=== PATIENT | male | born 1965 | race Hispanic/Latino ===

== ENCOUNTER 2021-08-06 08:04 | Inpatient (IN) | payer OTHER ==
[~2021-08-06] VITALS: Ht 188 cm; Wt 108.0 kg
[~2021-08-06 08:04] MED LIST: ZIPRASIDONE MESYLATE 20 MG/VIAL IM ONE
[2021-08-06] MEDS ORDERED: CEFTRIAXONE 1G VIAL IVP ONE (08:30)
[2021-08-06] MEDS ORDERED: 0.9%NACL 1000ML 1,000 ML IV ONE (08:30)
[2021-08-06] MEDS ORDERED: SOLU-MEDROL 125MG VIAL IVP ONE (08:30)
[2021-08-06] MEDS ORDERED: AZITHROMYCIN 250 MG TABLET PO ONE (08:30)
[2021-08-06 08:33] LABS: BASOPHILS % (AUTO) 0.4 % (0.0-5.0); HEMATOCRIT 51.5 % (42-54); LYMPHOCYTES % (AUTO) 6.1 % (21.0-51.0); MEAN CORPUSCULAR VOLUME 82.4 fL (79-99); MONOCYTES % (AUTO) 4.3 % (3.0-13.0); NEUTROPHILS % (AUTO) 87.5 % (40.0-77.0); PLATELET COUNT (AUTO) 173 K/uL (130-400); RED BLOOD CELL COUNT(AUTO) 6.25 MIL/uL (4.50-6.20); RED CELL DISTRIBUTION WIDTH 14.4 % (11.0-15.5); WHITE BLOOD COUNT (AUTO) 10.1 K/uL (4.8-10.8)
[2021-08-06] MEDS ORDERED: AZITHROMYCIN 500MG+NS 250ML 250 ML ONE (08:42)
[2021-08-06 08:49] LABS: ALANINE AMINOTRANSFERASE 38 U/L (12-78); ALBUMIN 3.1 g/dL (3.5-5.0); ASPARTATE AMINOTRANSFERASE 76 U/L (10-37); BILIRUBIN,TOTAL 0.8 mg/dL (0.2-1.0); CARBON DIOXIDE 21 mmol/L (21-32); CHLORIDE 99 mmol/L (101-111); CREATININE 3.2 mg/dL (0.5-1.5); GLOMERULAR FILTR. RATE CALC 21 mL/min (>60); GLUCOSE,RANDOM 176 mg/dL (70-105); POTASSIUM 4.2 mmol/L (3.5-5.1); SODIUM SERUM 138 mmol/L (136-145); TOTAL PROTEIN, SERUM 7.5 g/dL (6.0-8.3); UREA NITROGEN, BLOOD 68 mg/dL (7-18)
[2021-08-06 09:13] LABS: CRP QUANTITATIVE < 2.00 mg/L (0.00-9.0)
[2021-08-06 09:42] LABS: ERYTHROCYTE SEDIMENTATION RATE 20 MM/HR (0-20)
[2021-08-06] MEDS ORDERED: KETOROLAC 15MG/ML VIAL (15MG/ML) IV ONE (10:00)
[2021-08-06] MEDS ORDERED: PROCHLORPERAZINE 10MG/2ML INJ IV ONE (10:00)
[2021-08-06] MEDS ORDERED: DiphenhydrAMINE HCL 50 MG/ML VIAL IV ONE (10:00)
[2021-08-06] MEDS: OSELTAMIVIR PHOSPHATE 75 MG CAP PO SCH (10:00)
[2021-08-06 10:18] LABS: ABG BASE EXCESS -4.2 mmol/L (-2.0-3.0); ABG HCO3 19.4 mmol/L (21.0-28.0); ABG OXYGEN SATURATION 94.9 % (95.0-99.0); ABG PCO2 32 mmHg (35-48)
[2021-08-06] MEDS ORDERED: SOLU-MEDROL 125MG VIAL IVP SCH (11:00)
[2021-08-06] MEDS ORDERED: LACTULOSE 20 GM/30 ML UDCUP PO PRN (11:00)
[2021-08-06] MEDS ORDERED: ONDANSETRON 4MG INJ IVP PRN (11:00)
[2021-08-06] MEDS ORDERED: LABETALOL 20MG SYG IV PRN (11:00)
[2021-08-06] MEDS ORDERED: HYDRALAZINE 20MG/ML VIAL IV PRN (11:00)
[2021-08-06] MEDS: INSULIN HUMULIN R 100 UNIT/ML 3ML SQ SCH ×2 (11:30→16:30)
[2021-08-06] MEDS ORDERED: ETOMIDATE 20MG VIAL IVP ONE (12:21)
[2021-08-06] MEDS ORDERED: ROCURONIUM BROMIDE 10MG/1ML 5ML VL IV ONE (12:21)
[2021-08-06] MEDS ORDERED: SUCCINYLCHOLINE CHLORIDE 20 MG/ML 10 ML VIAL IVP ONE (12:21)
[2021-08-06] MEDS ORDERED: DIAZEPAM 2 MG TAB PO ONE (13:00)
[2021-08-06] MEDS ORDERED: ETOMIDATE 20MG VIAL ONE (13:33)
[2021-08-06] MEDS ORDERED: NOREPINEPHRIN 4MG/NS 250ML 250 ML IV ONE (13:36)
[2021-08-06] MEDS ORDERED: PROPOFOL 1000 MG/100 ML 100 ML IV ONE (13:36)
[2021-08-06] MEDS ORDERED: IPRATROPIUM/ALBUTEROL SULFATE 3 ML SOLUTION IH SCH (14:00)
[2021-08-06] MEDS ORDERED: ALBUTEROL INHALER 90MCG/INH IH SCH (14:00)
[2021-08-06 16:44] LABS: APPEARANCE,URINE Cloudy (CLEAR); BILIRUBIN,URINE Small (NEGATIVE); COLOR,URINE Dark Yellow (YELLOW); GLUCOSE, URINE (UA) Negative (NEGATIVE); KETONES,URINE Trace mg/dL (NEGATIVE); LEUKOCYTE ESTERASE ,URINE Negative (NEGATIVE); NITRATE,URINE Negative (NEGATIVE); OCCULT BLOOD,URINE Small (NEGATIVE); PROTEIN,URINE POS 2+ mg/dL (NEGATIVE)
[2021-08-06 16:51] LABS: WBC,URINE 0-1 /HPF (0-1)
[2021-08-06 16:52] LABS: BACTERIA,URINE Few /HPF (None Seen)
[2021-08-06 16:53] LABS: SQUAMOUS EPITHELIAL CELL,UR Rare /HPF (0-2)
[2021-08-06 16:54] LABS: AMORPHOUS SEDIMENT,UR Few /LPF (None Seen)
[2021-08-06] MEDS: SOLU-MEDROL 125MG VIAL IVP SCH (19:39)
[2021-08-06 21:00] VITALS: BP 116/77
[2021-08-06] MEDS: ATORVASTATIN 20 MG TABLET PO SCH (21:00)
[2021-08-06 22:00] VITALS: BP 174/84
[2021-08-06 23:00] VITALS: BP 129/74
[2021-08-06] MEDS ORDERED: DEXMEDETOMIDINE 400MCG/NS100ML IV ONE (23:33)
[2021-08-06] MEDS ORDERED: ZIPRASIDONE MESYLATE 20 MG/VIAL IM ONE (23:53)
[2021-08-07] VITALS (61 sets, daily range): BP systolic 78–167; BP diastolic 45–106
[2021-08-07 00:02] LABS: ABG BASE EXCESS -1.8 mmol/L (-2.0-3.0); ABG HCO3 21.7 mmol/L (21.0-28.0); ABG OXYGEN SATURATION 93.4 % (95.0-99.0); ABG PCO2 33 mmHg (35-48)
[2021-08-07] MEDS: INSULIN HUMULIN R 100 UNIT/ML 3ML SQ SCH ×5 (00:43→23:44)
[2021-08-07] MEDS: SOLU-MEDROL 125MG VIAL IVP SCH ×5 (00:44→23:48)
[2021-08-07] MEDS ORDERED: DEXMEDETOMIDINE 400MCG/NS100ML IV ONE (01:06)
[2021-08-07] MEDS ORDERED: NOREPINEPHRIN 4MG/NS 250ML 250 ML IV ONE ×2 (02:56→19:31)
[2021-08-07] MEDS ORDERED: NOREPINEPHRIN 4MG/NS 250ML 250 ML IV STA (02:58)
[2021-08-07] MEDS ORDERED: FUROSEMIDE 20MG VIAL IV STA (03:03)
[2021-08-07] MEDS: DEXMEDETOMIDINE 400MCG/NS100ML IV SCH ×3 (03:39→08:37)
[2021-08-07 03:56] LABS: BASOPHILS % (AUTO) 0.3 % (0.0-5.0); HEMATOCRIT 51.3 % (42-54); LYMPHOCYTES % (AUTO) 7.2 % (21.0-51.0); MEAN CORPUSCULAR HEMOGLOBIN 28.1 pg (27.0-33.0); MEAN CORPUSCULAR HGB CONC 32.9 g/dL (32.0-36.0); MEAN CORPUSCULAR VOLUME 85.2 fL (79-99); MONOCYTES % (AUTO) 4.9 % (3.0-13.0); NEUTROPHILS % (AUTO) 86.3 % (40.0-77.0); PLATELET COUNT (AUTO) 157 K/uL (130-400); RED BLOOD CELL COUNT(AUTO) 6.02 MIL/uL (4.50-6.20); RED CELL DISTRIBUTION WIDTH 15.1 % (11.0-15.5); WHITE BLOOD COUNT (AUTO) 11.9 K/uL (4.8-10.8)
[2021-08-07 04:01] LABS: HEMOGLOBIN A1C 5.6 % (4.0-6.0)
[2021-08-07 04:13] LABS: ALBUMIN 2.9 g/dL (3.5-5.0); BILIRUBIN,TOTAL 0.6 mg/dL (0.2-1.0); CREATININE 2.3 mg/dL (0.5-1.5); MAGNESIUM 2.5 mg/dL (1.80-2.40); TOTAL PROTEIN, SERUM 6.9 g/dL (6.0-8.3)
[2021-08-07] MEDS ORDERED: HALOPERIDOL INJ 5 MG/ML VIAL IM STA (05:54)
[2021-08-07 06:20] LABS: ABG BASE EXCESS -0.5 mmol/L (-2.0-3.0); ABG HCO3 23.9 mmol/L (21.0-28.0); ABG OXYGEN SATURATION 89.4 % (95.0-99.0); ABG PCO2 39 mmHg (35-48)
[2021-08-07] MEDS ORDERED: LORAZEPAM 2 MG/ML 1 ML VIAL ONE (06:58)
[2021-08-07] MEDS ORDERED: LORAZEPAM 2 MG/ML 1 ML VIAL IVP SCH (07:30)
[2021-08-07] MEDS ORDERED: PHARMACY COMMUNICATION MISC SCH (08:00)
[2021-08-07] MEDS ORDERED: HYDROMORPHONE PCA 10 MG/50 ML 50 ML IV PRN (08:00)
[2021-08-07] MEDS: LACTATED RINGERS 1000ML 1,000 ML IV SCH ×2 (08:17→18:18)
[2021-08-07] MEDS: AZITHROMYCIN 500MG+NS 250ML IV SCH (08:18)
[2021-08-07] MEDS: CEFTRIAXONE 1G VIAL IVP SCH (08:18)
[2021-08-07] MEDS: OSELTAMIVIR PHOSPHATE 75 MG CAP PO SCH (08:19)
[2021-08-07] MEDS ORDERED: ENOXAPARIN SODIUM 40 MG/0.4 ML SYRINGE SQ SCH (09:00)
[2021-08-07] MEDS ORDERED: PANTOPRAZOLE 40 MG/VIAL IVP SCH ×2 (09:00→12:30)
[2021-08-07] MEDS ORDERED: ASPIRIN 81MG CHEW TAB PO SCH (09:00)
[2021-08-07] MEDS ORDERED: FENTANYL 2500MCG+NS 250ML 250 ML IV ONE ×2 (10:26→21:27)
[2021-08-07] MEDS: MIDAZOLAM 100MG-0.9% NS 100ML 50 ML IV PRN (11:53)
[2021-08-07] MEDS: CISATRACURIUM BESYLATE 100 MG in 0.9%NACL 100ML 90 ML IV PRN (11:55)
[2021-08-07 12:51] LABS: ABG BASE EXCESS -7.8 mmol/L (-2.0-3.0); ABG HCO3 22.9 mmol/L (21.0-28.0); ABG OXYGEN SATURATION 97.7 % (95.0-99.0); ABG PCO2 71 mmHg (35-48)
[2021-08-07 13:02] LABS: HEMATOCRIT 54.3 % (42-54)
[2021-08-07] MEDS ORDERED: NOREPINEPHRINE BITARTRATE 8 MG in DEXTROSE 5%-WATER 250 ML IV PRN (14:30)
[2021-08-07] MEDS ORDERED: NOREPINEPHRIN 8MG/250ML NS PMX 250 ML IV PRN (15:00)
[2021-08-07] MEDS ORDERED: NOREPINEPHRIN 4MG/NS 250ML 250 ML IV PRN (18:00)
[2021-08-07 18:19] LABS: HEMATOCRIT 46.2 % (42-54)
[2021-08-07] MEDS ORDERED: PHENYLEPHRINE HCL 50 MG in 0.9% NACL 250ML 250 ML IV PRN (18:30)
[2021-08-07] MEDS ORDERED: 0.9%NACL 10ML VIAL ONE ×2 (21:01→23:47)
[2021-08-07] MEDS: PANTOPRAZOLE 40 MG/VIAL IVP SCH (21:04)
[2021-08-07] MEDS: ATORVASTATIN 20 MG TABLET PO SCH (21:04)
[2021-08-07 23:28] LABS: ABG BASE EXCESS -14.8 mmol/L (-2.0-3.0); ABG HCO3 19.1 mmol/L (21.0-28.0); ABG PCO2 84 mmHg (35-48)
[2021-08-07] MEDS ORDERED: SODIUM BICARB 50MEQ 50ML VIAL IV STA (23:52)
[2021-08-08] VITALS (65 sets, daily range): BP systolic 77–136; BP diastolic 52–85
[2021-08-08 02:17] LABS: ABG BASE EXCESS -3.4 mmol/L (-2.0-3.0); ABG OXYGEN SATURATION 99.8 % (95.0-99.0); ABG PCO2 74 mmHg (35-48)
[2021-08-08 02:28] LABS: BASOPHILS % (AUTO) 0.3 % (0.0-5.0); HEMATOCRIT 53.2 % (42-54); LYMPHOCYTES % (AUTO) 4.3 % (21.0-51.0); MEAN CORPUSCULAR HEMOGLOBIN 28.3 pg (27.0-33.0); MEAN CORPUSCULAR HGB CONC 29.5 g/dL (32.0-36.0); MONOCYTES % (AUTO) 3.8 % (3.0-13.0); NEUTROPHILS % (AUTO) 88.2 % (40.0-77.0); NUCLEATED RED BLOOD CELLS 0.3 % (0.0-0.19); PLATELET COUNT (AUTO) 87 K/uL (130-400); RED BLOOD CELL COUNT(AUTO) 5.54 MIL/uL (4.50-6.20); RED CELL DISTRIBUTION WIDTH 15.8 % (11.0-15.5); WHITE BLOOD COUNT (AUTO) 20.3 K/uL (4.8-10.8)
[2021-08-08 03:00] LABS: ALBUMIN 2.7 g/dL (3.5-5.0); BILIRUBIN,TOTAL 0.7 mg/dL (0.2-1.0); CREATININE 5.2 mg/dL (0.5-1.5); CRP QUANTITATIVE 176.5 mg/L (0.00-9.0); TOTAL PROTEIN, SERUM 6.1 g/dL (6.0-8.3)
[2021-08-08 03:04] LABS: POTASSIUM 7.2 mmol/L (3.5-5.1)
[2021-08-08] MEDS ORDERED: SODIUM BICARB 50MEQ 50ML VIAL 150 ML ONE (03:50)
[2021-08-08] MEDS: CALCIUM GLUC 1GM 2 GM in 0.9%NACL 100ML 100 ML IV SCH ×2 (03:50→22:43)
[2021-08-08] MEDS ORDERED: DEXTROSE 5%-WATER 1,000 ML IV ONE (03:51)
[2021-08-08] MEDS ORDERED: INSULIN HUMULIN R 100 UNIT/ML 3ML IV ONE ×2 (04:00)
[2021-08-08] MEDS ORDERED: SODIUM BICARB 8.4% 50ML SYRINGE IVP ONE (04:00)
[2021-08-08] MEDS ORDERED: DEXTROSE 50%-WATER 50 ML DISP.SYRIN IV ONE ×2 (04:00)
[2021-08-08] MEDS ORDERED: SODIUM BICARB 50MEQ 50ML VIAL IV ONE (04:00)
[2021-08-08 04:13] LABS: ERYTHROCYTE SEDIMENTATION RATE 1 MM/HR (0-20)
[2021-08-08 04:30] LABS: ABG BASE EXCESS -2.3 mmol/L (-2.0-3.0); ABG HCO3 27.4 mmol/L (21.0-28.0); ABG PCO2 70 mmHg (35-48)
[2021-08-08] MEDS: SODIUM BICARB 8.4% 50ML SYRING 150 MEQ in DEXTROSE 5%-WATER 1,000 ML IV SCH ×3 (04:44)
[2021-08-08] MEDS: INSULIN HUMULIN R 100 UNIT/ML 3ML SQ SCH ×4 (06:00→23:48)
[2021-08-08] MEDS ORDERED: 0.9%NACL 10ML VIAL ONE (06:00)
[2021-08-08] MEDS: SOLU-MEDROL 125MG VIAL IVP SCH ×4 (06:05→23:40)
[2021-08-08] MEDS: AZITHROMYCIN 500MG+NS 250ML IV SCH (08:13)
[2021-08-08] MEDS: CEFTRIAXONE 1G VIAL IVP SCH (08:13)
[2021-08-08] MEDS: KAYEXALATE 15GM/60ML NG SCH ×2 (08:13→11:23)
[2021-08-08] MEDS: PANTOPRAZOLE 40 MG/VIAL IVP SCH ×2 (08:14→20:28)
[2021-08-08] MEDS: OSELTAMIVIR PHOSPHATE 75 MG CAP NG SCH (08:14)
[2021-08-08] MEDS ORDERED: FENTANYL 2500MCG+NS 250ML 250 ML IV ONE ×2 (09:43→20:19)
[2021-08-08] MEDS: MIDAZOLAM 100MG-0.9% NS 100ML 50 ML IV PRN ×2 (10:07→18:44)
[2021-08-08] MEDS ORDERED: NOREPINEPHRIN 4MG/NS 250ML 250 ML IV SCH (10:30)
[2021-08-08] MEDS: CISATRACURIUM BESYLATE 100 MG in 0.9%NACL 100ML 90 ML IV PRN ×2 (10:32→21:55)
[2021-08-08] MEDS: ACETAMINOPHEN 325 MG TAB PO PRN (11:44)
[2021-08-08] MEDS ORDERED: SODIUM BICARB 8.4% 50ML SYRING 150 MEQ in DEXTROSE 5%-WATER 1,000 ML IV SCH (13:00)
[2021-08-08 14:24] LABS: CREATININE 5.3 mg/dL (0.5-1.5)
[2021-08-08 14:38] LABS: POTASSIUM 6.2 mmol/L (3.5-5.1)
[2021-08-08] MEDS ORDERED: 0.9%NACL 1000ML 2,000 ML IV ONE (15:59)
[2021-08-08] MEDS ORDERED: ALBUMIN (HUMAN) 25% 100 ML IV ONE (16:36)
[2021-08-08 17:00] LABS: HEMATOCRIT 45.9 % (42-54)
[2021-08-08] MEDS ORDERED: ALBUMIN (HUMAN) 25% 100 ML IV PRN (17:00)
[2021-08-08] MEDS ORDERED: PHARMACY COMMUNICATION MISC SCH ×2 (17:00→17:30)
[2021-08-08] MEDS: NOREPINEPHRINE BITARTRATE 16 MG in 0.9% NACL 250ML 250 ML IV PRN ×2 (17:09→21:54)
[2021-08-08 17:15] LABS: HEMOGLOBIN A1C 5.8 % (4.0-6.0)
[2021-08-08 17:18] LABS: % IRON SATURATION 10.6 % (30-44)
[2021-08-08 17:56] LABS: ALBUMIN 2.4 g/dL (3.5-5.0); CREATININE 5.1 mg/dL (0.5-1.5)
[2021-08-08] MEDS: HEPARIN 5,000 UNIT VIAL IV SCH (18:41)
[2021-08-08] MEDS: CEFEPIME HCL 1 GM VIAL IVP SCH (20:28)
[2021-08-08] MEDS: ATORVASTATIN 20 MG TABLET PO SCH (20:28)
[2021-08-09] VITALS (66 sets, daily range): BP systolic 103–156; BP diastolic 63–97
[2021-08-09 03:36] LABS: ABG BASE EXCESS 3.9 mmol/L (-2.0-3.0); ABG HCO3 29.9 mmol/L (21.0-28.0); ABG OXYGEN SATURATION 98.5 % (95.0-99.0); ABG PCO2 50 mmHg (35-48)
[2021-08-09] MEDS: ACETAMINOPHEN 325 MG TAB PO PRN ×2 (04:05→09:07)
[2021-08-09 04:13] LABS: HEMATOCRIT 46.4 % (42-54); MEAN CORPUSCULAR HEMOGLOBIN 28.1 pg (27.0-33.0); MEAN CORPUSCULAR HGB CONC 31.9 g/dL (32.0-36.0); NUCLEATED RED BLOOD CELLS 0.1 % (0.0-0.19); PLATELET COUNT (AUTO) 78 K/uL (130-400); RED BLOOD CELL COUNT(AUTO) 5.27 MIL/uL (4.50-6.20); RED CELL DISTRIBUTION WIDTH 14.7 % (11.0-15.5)
[2021-08-09 04:29] LABS: CREATININE 5.9 mg/dL (0.5-1.5); POTASSIUM 4.7 mmol/L (3.5-5.1)
[2021-08-09] MEDS ORDERED: FENTANYL 2500MCG+NS 250ML 250 ML IV ONE ×2 (04:38→16:06)
[2021-08-09] MEDS: MIDAZOLAM 100MG-0.9% NS 100ML 50 ML IV PRN ×2 (04:57→16:16)
[2021-08-09] MEDS ORDERED: PHARMACY COMMUNICATION MISC SCH (05:30)
[2021-08-09] MEDS: SOLU-MEDROL 125MG VIAL IVP SCH ×3 (06:26→17:23)
[2021-08-09] MEDS: INSULIN HUMULIN R 100 UNIT/ML 3ML SQ SCH ×3 (06:36→16:15)
[2021-08-09] MEDS: PANTOPRAZOLE 40 MG/VIAL IVP SCH ×2 (08:05→20:32)
[2021-08-09] MEDS: AZITHROMYCIN 500MG+NS 250ML IV SCH (08:06)
[2021-08-09] MEDS: OSELTAMIVIR PHOSPHATE 75 MG CAP NG SCH (08:06)
[2021-08-09] MEDS: CALCIUM GLUC 1GM 2 GM in 0.9%NACL 100ML 100 ML IV SCH (08:30)
[2021-08-09] MEDS: NOREPINEPHRINE BITARTRATE 16 MG in 0.9% NACL 250ML 250 ML IV PRN (08:32)
[2021-08-09 12:49] LABS: INR 2.25 (0.85-1.15); PROTHROMBIN TIME 22.8 SEC (9.6-11.6)
[2021-08-09 12:50] LABS: PARTIAL THROMBOPLASTIN TIME 36.1 SEC (26.3-35.5)
[2021-08-09] MEDS ORDERED: 0.9%NACL 1000ML 2,000 ML IV ONE (17:32)
[2021-08-09] MEDS: ATORVASTATIN 20 MG TABLET PO SCH (20:30)
[2021-08-09] MEDS: CEFEPIME HCL 1 GM VIAL IVP SCH (20:32)
[2021-08-09] MEDS: HEPARIN 5,000 UNIT VIAL IV SCH (20:46)
[2021-08-10] VITALS (76 sets, daily range): BP systolic 87–155; BP diastolic 59–96
[2021-08-10] MEDS: SOLU-MEDROL 125MG VIAL IVP SCH ×4 (00:11→20:35)
[2021-08-10] MEDS: INSULIN HUMULIN R 100 UNIT/ML 3ML SQ SCH ×2 (00:49→05:50)
[2021-08-10] MEDS ORDERED: FENTANYL 2500MCG+NS 250ML 250 ML IV ONE ×2 (02:21→22:38)
[2021-08-10] MEDS: MIDAZOLAM 100MG-0.9% NS 100ML 50 ML IV PRN ×3 (02:29→22:52)
[2021-08-10 05:47] LABS: BASOPHILS % (AUTO) 0.2 % (0.0-5.0); HEMATOCRIT 43.6 % (42-54); LYMPHOCYTES % (AUTO) 3.4 % (21.0-51.0); MEAN CORPUSCULAR HEMOGLOBIN 27.6 pg (27.0-33.0); MEAN CORPUSCULAR HGB CONC 32.1 g/dL (32.0-36.0); MEAN CORPUSCULAR VOLUME 85.8 fL (79-99); MONOCYTES % (AUTO) 3.6 % (3.0-13.0); NEUTROPHILS % (AUTO) 92.1 % (40.0-77.0); PLATELET COUNT (AUTO) 49 K/uL (130-400); RED BLOOD CELL COUNT(AUTO) 5.08 MIL/uL (4.50-6.20); RED CELL DISTRIBUTION WIDTH 14.5 % (11.0-15.5); WHITE BLOOD COUNT (AUTO) 20.1 K/uL (4.8-10.8)
[2021-08-10 06:03] LABS: CREATININE 6.4 mg/dL (0.5-1.5); POTASSIUM 4.3 mmol/L (3.5-5.1)
[2021-08-10 08:14] LABS: HEPATITIS Bs ANTIGEN SCREEN P Negative (Negative)
[2021-08-10] MEDS ORDERED: ENOXAPARIN SODIUM 60 MG/0.6 ML SQ ONE (09:00)
[2021-08-10] MEDS: OSELTAMIVIR PHOSPHATE 75 MG CAP NG SCH (09:09)
[2021-08-10] MEDS: PANTOPRAZOLE 40 MG/VIAL IVP SCH ×2 (09:09→20:34)
[2021-08-10] MEDS: NOREPINEPHRINE BITARTRATE 16 MG in 0.9% NACL 250ML 250 ML IV PRN (09:48)
[2021-08-10 13:36] LABS: HEMATOCRIT 41.1 % (42-54)
[2021-08-10] MEDS ORDERED: 0.9%NACL 1000ML 2,000 ML IV ONE (15:18)
[2021-08-10 15:41] LABS: HEMATOCRIT 41.6 % (42-54); MEAN CORPUSCULAR HEMOGLOBIN 27.9 pg (27.0-33.0); MEAN CORPUSCULAR HGB CONC 32.2 g/dL (32.0-36.0); MEAN CORPUSCULAR VOLUME 86.7 fL (79-99); PLATELET COUNT (AUTO) 47 K/uL (130-400); RED CELL DISTRIBUTION WIDTH 14.4 % (11.0-15.5); WHITE BLOOD COUNT (AUTO) 25.8 K/uL (4.8-10.8)
[2021-08-10 18:11] LABS: HEMATOCRIT 49.1 % (42-54)
[2021-08-10] MEDS: ATORVASTATIN 20 MG TABLET PO SCH (20:35)
[2021-08-10] MEDS: CEFEPIME HCL 1 GM VIAL IVP SCH (20:35)
[2021-08-10] MEDS ORDERED: ALBUMIN (HUMAN) 5% 500 ML IV ONE (22:30)
[2021-08-10] MEDS: FENTANYL CITRATE PF 0.05 MG/ML 2,500 MCG in 0.9% NACL 250ML 200 ML IVPB PRN (22:53)
[2021-08-11] VITALS (115 sets, daily range): BP systolic 35–201; BP diastolic 25–135
[2021-08-11 00:29] LABS: HEMATOCRIT 45.2 % (42-54)
[2021-08-11 00:46] LABS: ABG HCO3 23.8 mmol/L (21.0-28.0); ABG OXYGEN SATURATION 96.6 % (95.0-99.0); ABG PCO2 54 mmHg (35-48)
[2021-08-11] MEDS: INSULIN HUMULIN R 100 UNIT/ML 3ML SQ SCH ×3 (00:52→20:32)
[2021-08-11] MEDS: SOLU-MEDROL 125MG VIAL IVP SCH ×2 (00:52→05:16)
[2021-08-11] MEDS: ACETAMINOPHEN 325 MG TAB PO PRN ×2 (02:23→03:43)
[2021-08-11] MEDS: FENTANYL CITRATE PF 0.05 MG/ML 2,500 MCG in 0.9% NACL 250ML 200 ML IVPB PRN ×2 (03:43→20:29)
[2021-08-11] MEDS: MIDAZOLAM 100MG-0.9% NS 100ML 50 ML IV PRN ×3 (05:37→22:52)
[2021-08-11] MEDS ORDERED: PHENYLEPHRINE HCL 10 MG/ML 1ML VIAL IV ONE (05:56)
[2021-08-11 06:32] LABS: BASOPHILS % (AUTO) 0.2 % (0.0-5.0); HEMATOCRIT 41.7 % (42-54); MEAN CORPUSCULAR HEMOGLOBIN 28.3 pg (27.0-33.0); MEAN CORPUSCULAR HGB CONC 32.1 g/dL (32.0-36.0); MONOCYTES % (AUTO) 3.6 % (3.0-13.0); NEUTROPHILS % (AUTO) 93.4 % (40.0-77.0); PLATELET COUNT (AUTO) 46 K/uL (130-400); RED BLOOD CELL COUNT(AUTO) 4.74 MIL/uL (4.50-6.20); RED CELL DISTRIBUTION WIDTH 14.5 % (11.0-15.5); WHITE BLOOD COUNT (AUTO) 21.2 K/uL (4.8-10.8)
[2021-08-11 07:00] LABS: ABG BASE EXCESS -3.2 mmol/L (-2.0-3.0); ABG HCO3 24.3 mmol/L (21.0-28.0); ABG OXYGEN SATURATION 92.4 % (95.0-99.0); ABG PCO2 53 mmHg (35-48)
[2021-08-11 07:10] LABS: ALBUMIN 2.6 g/dL (3.5-5.0); CREATININE 7.5 mg/dL (0.5-1.5); CRP QUANTITATIVE 85.1 mg/L (0.00-9.0); THYROID STIMULATING HORMONE 0.07 uIU/mL (0.36-3.74); TOTAL PROTEIN, SERUM 5.7 g/dL (6.0-8.3)
[2021-08-11 07:15] LABS: POTASSIUM 6.1 mmol/L (3.5-5.1)
[2021-08-11] MEDS ORDERED: VANCOMYCIN 1G VIAL IVPB SCH (08:30)
[2021-08-11] MEDS ORDERED: VANCOMYCIN PROTOCOL PER PHARMACY IV SCH (08:30)
[2021-08-11] MEDS ORDERED: CALCIUM GLUC 1GM/10ML VIAL IVPB SCH (15:00)
[2021-08-11] MEDS ORDERED: 0.9%NACL 50ML IV SCH (15:00)
[2021-08-11] MEDS ORDERED: INSULIN HUMULIN R 100 UNIT/ML 3ML IV ONE (15:00)
[2021-08-11] MEDS ORDERED: COMPOUND IV REFRIGERATED 1 EACH IVSOLN MISC PRN (15:30)
[2021-08-11] MEDS: IBUPROFEN 600 MG TABLET PO PRN (15:36)
[2021-08-11] MEDS ORDERED: DEXTROSE 50%-WATER 50 ML DISP.SYRIN IV ONE (16:00)
[2021-08-11 16:10] LABS: APPEARANCE,URINE CLOUDY (CLEAR); BILIRUBIN,URINE SMALL (NEGATIVE); COLOR,URINE YELLOW (YELLOW); GLUCOSE, URINE (UA) NEGATIVE (NEGATIVE); KETONES,URINE 5 mg/dL (NEGATIVE); LEUKOCYTE ESTERASE ,URINE NEGATIVE (NEGATIVE); NITRATE,URINE NEGATIVE (NEGATIVE); OCCULT BLOOD,URINE LARGE (NEGATIVE); PH,URINE 5.5 (5.0-8.0); PROTEIN,URINE 100 mg/dL (NEGATIVE); UROBILINOGEN,URINE 0.2 mg/dL (0.2-1.0)
[2021-08-11 16:14] LABS: BACTERIA,URINE Few /HPF (None Seen)
[2021-08-11 16:15] LABS: SQUAMOUS EPITHELIAL CELL,UR Few /HPF (0-2)
[2021-08-11 16:16] LABS: AMORPHOUS SEDIMENT,UR Few /LPF (None Seen)
[2021-08-11 16:17] LABS: TRANSITIONAL EPI CELLS,URINE Rare /HPF (None Seen)
[2021-08-11] MEDS ORDERED: NOREPINEPHRINE BITARTRATE 32 MG in 0.9% NACL 250ML 250 ML IV SCH (17:30)
[2021-08-11] MEDS ORDERED: VANCOMYCIN 2GM/500ML NS IV ONE ×2 (18:00)
[2021-08-11] MEDS: PHENYLEPHRINE HCL 100 MG in 0.9% NACL 250ML 250 ML IV SCH (20:11)
[2021-08-11] MEDS: PANTOPRAZOLE 40 MG/VIAL IVP SCH (20:48)
[2021-08-11] MEDS: CEFEPIME HCL 1 GM VIAL IVP SCH (20:51)
[2021-08-11] MEDS: METRONIDAZOLE 500MG/100ML BAG 100 ML IVPB SCH (21:11)
[2021-08-11] MEDS: ATORVASTATIN 20 MG TABLET PO SCH (21:12)
[2021-08-11] MEDS ORDERED: ACETAMINOPHEN 650 MG/20.3 ML UDCUP PO PRN (21:30)
[2021-08-12] VITALS (35 sets, daily range): BP systolic 83–162; BP diastolic 29–101
[2021-08-12] MEDS: PHENYLEPHRINE HCL 100 MG in 0.9% NACL 250ML 250 ML IV SCH ×2 (03:15→11:56)
[2021-08-12 04:24] LABS: BASOPHILS % (AUTO) 0.2 % (0.0-5.0); HEMATOCRIT 34.6 % (42-54); LYMPHOCYTES % (AUTO) 2.8 % (21.0-51.0); MEAN CORPUSCULAR HEMOGLOBIN 27.4 pg (27.0-33.0); MEAN CORPUSCULAR HGB CONC 31.8 g/dL (32.0-36.0); MEAN CORPUSCULAR VOLUME 86.3 fL (79-99); MONOCYTES % (AUTO) 4.2 % (3.0-13.0); NEUTROPHILS % (AUTO) 91.6 % (40.0-77.0); PLATELET COUNT (AUTO) 53 K/uL (130-400); RED BLOOD CELL COUNT(AUTO) 4.01 MIL/uL (4.50-6.20); RED CELL DISTRIBUTION WIDTH 14.6 % (11.0-15.5); WHITE BLOOD COUNT (AUTO) 24.7 K/uL (4.8-10.8)
[2021-08-12 04:41] LABS: ALBUMIN 2.1 g/dL (3.5-5.0); BILIRUBIN,TOTAL 1.1 mg/dL (0.2-1.0); CREATININE 7.7 mg/dL (0.5-1.5); CRP QUANTITATIVE 141.5 mg/L (0.00-9.0); POTASSIUM 5.7 mmol/L (3.5-5.1); TOTAL PROTEIN, SERUM 4.9 g/dL (6.0-8.3)
[2021-08-12] MEDS: INSULIN HUMULIN R 100 UNIT/ML 3ML SQ SCH ×4 (05:44→12:00)
[2021-08-12] MEDS: METRONIDAZOLE 500MG/100ML BAG 100 ML IVPB SCH ×2 (06:28→14:00)
[2021-08-12] MEDS: SOLU-MEDROL 125MG VIAL IVP SCH ×4 (06:28→18:31)
[2021-08-12] MEDS: FENTANYL 2500MCG+NS 250ML IV.SOLN IV SCH ×2 (06:38→08:30)
[2021-08-12 07:33] LABS: ABG BASE EXCESS -5.9 mmol/L (-2.0-3.0); ABG HCO3 23.7 mmol/L (21.0-28.0); ABG OXYGEN SATURATION 61.8 % (95.0-99.0); ABG PCO2 65 mmHg (35-48)
[2021-08-12] MEDS: FLUCONAZOLE 400 MG/NS 200 ML 200 ML IV SCH ×2 (08:25→08:45)
[2021-08-12] MEDS: OSELTAMIVIR PHOSPHATE 75 MG CAP NG SCH ×2 (08:25→08:44)
[2021-08-12] MEDS: IBUPROFEN 600 MG TABLET PO PRN ×3 (08:29→09:46)
[2021-08-12] MEDS: PANTOPRAZOLE 40 MG/VIAL IVP SCH (08:44)
[2021-08-12] MEDS: MIDAZOLAM 100MG-0.9% NS 100ML 50 ML IV PRN (08:45)
[2021-08-12] MEDS ORDERED: FONDAPARINUX SODIUM 2.5 MG/0.5 ML SQ SCH (09:00)
[2021-08-12 09:24] LABS: ABG BASE EXCESS -5.6 mmol/L (-2.0-3.0); ABG HCO3 22.2 mmol/L (21.0-28.0); ABG OXYGEN SATURATION 99.2 % (95.0-99.0); ABG PCO2 53 mmHg (35-48)
[2021-08-12] MEDS ORDERED: IOHEXOL-350 75 ML VIAL IV ONE (10:27)
[2021-08-13] MEDS ORDERED: VANCOMYCIN KIT 1 GM/250 ML IV.KIT IV SCH (17:00)
== END 2021-08-12 21:19 | DRG 207 ==
LOC: EDH 08:04 → EDHIP 08:05 → 2BH 20:33
PROVIDERS: ADMIT Internal Medicine Infectious Disease; ATTEND Internal Medicine Infectious Disease
PROC: 5A1955Z Respiratory Ventilation, Greater than 96 Consecutive Hours (ICD-10-PCS; principal; 2021-08-06)
PROC: 5A09357 Assistance with Respiratory Ventilation, Less than 24 Consecutive Hours, Continuous Positive Airway Pressure (ICD-10-PCS; 2021-08-06)
PROC: 5A09357 Assistance with Respiratory Ventilation, Less than 24 Consecutive Hours, Continuous Positive Airway Pressure (ICD-10-PCS; 2021-08-06)
PROC: 5A0935A Assistance with Respiratory Ventilation, Less than 24 Consecutive Hours, High Flow/Velocity Cannula (ICD-10-PCS; 2021-08-06)
PROC: 0BH17EZ Insertion of Endotracheal Airway into Trachea, Via Natural or Artificial Opening (ICD-10-PCS; 2021-08-06)
PROC: 5A1D70Z Performance of Urinary Filtration, Intermittent, Less than 6 Hours Per Day (ICD-10-PCS; 2021-08-08)
PROC: 5A1D70Z Performance of Urinary Filtration, Intermittent, Less than 6 Hours Per Day (ICD-10-PCS; 2021-08-09)
PROC: 5A1D70Z Performance of Urinary Filtration, Intermittent, Less than 6 Hours Per Day (ICD-10-PCS; 2021-08-10)
PROC: 02H633Z Insertion of Infusion Device into Right Atrium, Percutaneous Approach (ICD-10-PCS; 2021-08-10)
PROC: 5A1D70Z Performance of Urinary Filtration, Intermittent, Less than 6 Hours Per Day (ICD-10-PCS; 2021-08-11)
DX: U07.1 COVID-19 (principal); A41.89 Other specified sepsis; I21.4 Non-ST elevation (NSTEMI) myocardial infarction; J10.08 Influenza due to other identified influenza virus with other specified pneumonia; J12.82 Pneumonia due to coronavirus disease 2019; J80 Acute respiratory distress syndrome; K72.00 Acute and subacute hepatic failure without coma; N18.6 End stage renal disease; I61.5 Nontraumatic intracerebral hemorrhage, intraventricular; R65.21 Severe sepsis with septic shock; N17.9 Acute kidney failure, unspecified; I12.0 Hypertensive chronic kidney disease with stage 5 chronic kidney disease or end stage renal disease; G93.1 Anoxic brain damage, not elsewhere classified; J93.9 Pneumothorax, unspecified; K92.2 Gastrointestinal hemorrhage, unspecified; M62.82 Rhabdomyolysis; Z66 Do not resuscitate; E88.09 Other disorders of plasma-protein metabolism, not elsewhere classified; F41.9 Anxiety disorder, unspecified; E87.5 Hyperkalemia; D69.6 Thrombocytopenia, unspecified; E78.5 Hyperlipidemia, unspecified; E66.01 Morbid (severe) obesity due to excess calories; E11.22 Type 2 diabetes mellitus with diabetic chronic kidney disease; D64.9 Anemia, unspecified; Z91.19 Patient's noncompliance with other medical treatment and regimen; Z99.2 Dependence on renal dialysis
CPT/HCPCS: 31500; 36415; 36600; 70450; 71045; 71250; 78610; 80048; 80053; 80061; 80190; 81001; 82040; 82435; 82550; 82565; 82728; 82803; 82947; 82948; 83036; 83540; 83550; 83605; 83735; 83874; 83880; 84100; 84132; 84145; 84295; 84443; 84484; 84520; 85014; 85018; 85025; 85027; 85378; 85610; 85651; 85730; 86140; 86701; 86704; 86706; 86850; 86900; 86901; 87040; 87071; 87088; 87205; 87340; 87390; 87635; 87804; 90935; 93005; 93925; 93970; 94002; 94003; 94660; 99291; A9512; C1751; C9113; C9803; G0378; J0330; J0456; J0610; J0692; J0696; J0780; J1170; J1200; J1450; J1630; J1644; J1650; J1652; J1815; J1885; J1940; J2060; J2250; J2370; J2704; J2930; J3010; J3370; J3486; J3490; J7030; J7040; J7050; J7070; J7120; P9045; P9046; Q9967